=== PATIENT | female | born 1940 | race Caucasian/White ===

== ENCOUNTER 2016-11-13 13:30 | Outpatient (CLI) | payer MEDICARE, OTHER ==
--- NOTE | 2016-11-13 16:28 | CT ---
NONCONTRAST CT OF THE LUMBAR SPINE: Indication: Post laminectomy syndrome. Comparison: None. FINDINGS: There are bilateral pedicle screws at L3 through L5 with interconnecting rods. There is some mild l ucency surrounding the pedicle screw on the right at L3 which may reflect changes of loosening. There is an IVC filter seen within the infrarenal vena cava. There is a battery pack with associate d generator leads seen overlying the left gluteal region. There are surgical clips seen within the pelvis. There is grade I anterolisthesis of L3 on L4. No acute fracture or subluxation is evident. There is moderate spondylosis of the lumbar spine. IMPRESSION: 1. Moderate spondylosis of the lumbar spine with posterior lumbar interspinal instrumentation germán ing L3 through L5. There is some lucency surrounding the pedicle screw on the right at L3, possibly related to loosening. 2. Grade I anterolisthesis of L3 on L4 with vacuum disc phenomenon likely related to some instabili ty at this level. 3. IVC filter. POS: EMETERIO
--- NOTE | 2016-11-13 16:34 | CT ---
NONCONTRAST CT OF THE THORACIC SPINE: Indication: Post laminectomy syndrome. History of chronic pain syndrome. 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 Spinal alignment is preserved. Osseous central canal appears preserved. The average diameter of the thoracic spinal canal is 16 mm. No osseous neural foraminal narrowing is demonstrated. Visualized aspects of the mediastinum a ppear within normal limits. Visualized lungs are clear. 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 POS: EMETERIO
== END 2016-11-13 13:31 | disposition home or self-care (01) ==
LOC: MADRAD 13:30
DX: M96.1 Postlaminectomy syndrome, not elsewhere classified (principal); G89.4 Chronic pain syndrome
CPT/HCPCS: 72128; 72131

== ENCOUNTER 2019-12-11 16:46 | Emergency (ER) | payer MEDICARE, OTHER | END 2019-12-11 17:22 | disposition home or self-care (01) | LOC: MADERS 16:46 | DX: R19.7 Diarrhea, unspecified (principal); I10 Essential (primary) hypertension; G62.9 Polyneuropathy, unspecified; F32.9 Major depressive disorder, single episode, unspecified | CPT/HCPCS: 99281 ==

== ENCOUNTER 2020-01-02 22:36 | Emergency (ER) | payer MEDICARE, OTHER ==
[~2020-01-02 22:36] MED LIST: Sterile Water Irrigation 1,000 ML BOT ONE
== END 2020-01-02 23:13 | disposition home or self-care (01) ==
LOC: MADERS 22:36
DX: T83.091A Other mechanical complication of indwelling urethral catheter, initial encounter (principal); R31.9 Hematuria, unspecified; I10 Essential (primary) hypertension; F32.9 Major depressive disorder, single episode, unspecified; G62.9 Polyneuropathy, unspecified
CPT/HCPCS: 99283; A4217

== ENCOUNTER 2024-06-22 11:11 | Outpatient (CLI) | payer MEDICARE | END 2024-06-22 11:12 | disposition home or self-care (01) | LOC: MADRAD 11:11 | PROVIDERS: ATTEND Internal Medicine Cardiovascular Disease | DX: I48.0 Paroxysmal atrial fibrillation (principal) | CPT/HCPCS: 71046 ==

== ENCOUNTER 2024-09-16 16:54 | Emergency (ER) | payer MEDICARE ==
[~2024-09-16 16:54] MED LIST changes: +Iopamidol 370 76% 100 ML VIAL ONE; -Sterile Water Irrigation 1,000 ML BOT ONE
[2024-09-16] MEDS ORDERED: Acetaminophen 500 MG TAB ONE (18:00)
[2024-09-16] MEDS ORDERED: Sodium Chloride 0.9% 100 ML ONE (18:01)
[2024-09-16] MEDS ORDERED: Cefepime 1 GM VIAL ONE (18:01)
[2024-09-16 18:10] LABS: INR-International Normal Ratio 1.2; Prothrombin Time 15.2 sec (12.0-14.7)
[2024-09-16 18:11] LABS: PTT 30.7 sec (22.9-36.1)
[2024-09-16 18:15] LABS: Hematocrit 36.3 % (36.0-47.0); Hemoglobin 11.8 g/dL (12.0-16.0); Mean Corpuscular HGB CONC 32.6 g/dL (32.0-36.0); Mean Corpuscular Hemoglobin 31.8 pg (27.0-31.0); Mean Corpuscular Volume 97.3 fl (78.0-98.0); Mean Platelet Volume 6.9 fL (7.4-10.4); Platelet Count 285 10x3/uL (130-400); RBC Distribution Width 12.5 % (11.5-14.5); Red Blood Cell (RBC) Count 3.73 mill/uL (4.20-5.40); White Blood Cell (WBC) Count 14.5 10x3/uL (4.8-10.8)
[2024-09-16 18:22] LABS: ALT (SGPT) 9 U/L (8-55); AST (SGOT) 17 U/L (5-34); Albumin 3.1 g/dL (3.4-4.8); Alkaline Phosphatase 62 U/L (40-110); Anion Gap 16 mmol/L (10-20); BUN (Urea Nitrogen) 63 mg/dL (9.8-20.1); Bilirubin, Total 0.6 mg/dL (0.2-1.2); Calc. Creatinine Clearance 0 mL/min (70-130); Calcium 9.5 mg/dL (7.8-10.44); Carbon Dioxide 27 mmol/L (23-31); Chloride 96 mmol/L (98-107); Estimated GFR 19; Globulin 3.3 g/dL (2.4-3.5); Glucose 124 mg/dL (83-110); Lipase 16 U/L (8-78); Potassium 5.2 mmol/L (3.5-5.1); Protein, Total 6.4 g/dL (5.8-8.1); Sodium 134 mmol/L (136-145); Troponin I Less than 0.010 ng/mL (< 0.028)
[2024-09-16 18:28] LABS: Band 4 % (5-11); Lymphocytes 2 % (21-51); MDiff Complete? YES; Manual Diff?? YES; Monocytes 2 % (0-10); Neutrophil 87 % (42-75); Platelet Adequacy Comment Appears Adequate; Reactive Lymphocytes 5 % (0-10)
[2024-09-16 19:42] LABS: Bacteria/HPF 2+ HPF (None Seen); Bilirubin Small (Negative); Blood, Urine Small (Negative); CAUTI Indications for Culture Dysuria,urgency,freq; Clarity Cloudy (Clear); Glucose, Urine (Dipstick) Negative (Negative); Ketone, Urine Trace mg/dL (Negative); Leukocyte Moderate (Negative); Nitrite Negative (Negative); Protein, Urine (Dipstick) 30 mg/dL (Neg-Trace); WBC/HPF Greater than 50 HPF (0-3); pH, Urine 5.5 (5.0-9.0)
[2024-09-16 19:43] LABS: Urine Culture Reflex Yes Yes
== END 2024-09-16 20:34 | disposition short-term general hospital (02) ==
LOC: MADERS 16:54
DX: N17.9 Acute kidney failure, unspecified (principal); N39.0 Urinary tract infection, site not specified; R65.10 Systemic inflammatory response syndrome (SIRS) of non-infectious origin without acute organ dysfunction; I10 Essential (primary) hypertension; I48.91 Unspecified atrial fibrillation; Z79.899 Other long term (current) drug therapy
CPT/HCPCS: 51702; 74177; 80053; 81001; 83605; 83690; 83880; 84484; 85025; 85610; 85730; 87040; 87077; 87086; 87149 ×2; 87186; 93005; 96374; 99285; J0692; Q9967; 36415

== ENCOUNTER 2025-08-31 15:22 | Outpatient (CLI) | payer MEDICARE ==
[2025-08-31 16:03] LABS: #Basophils 0.1 thou/uL (0.0-0.2); #Eosinophils 0.1 thou/uL (0.0-0.7); #Lymphocytes 3.2 thou/uL (1.20-3.40); #Monocytes 0.7 thou/uL (0.11-0.59); #Neutrophils 4.5 thou/uL (1.40-6.50); %Basophils 1.5 % (0.0-1.0); %Eosinophils 1.2 % (0.0-10.0); %Lymphocytes 37.4 % (21.0-51.0); %Monocytes 8.2 % (0.0-10.0); %Neutrophils 51.8 % (42.0-75.0); Hematocrit 38.8 % (36.0-47.0); Hemoglobin 12.9 g/dL (12.0-16.0); Mean Corpuscular Hemoglobin 31.8 pg (27.0-31.0); Mean Corpuscular Volume 95.5 fl (78.0-98.0); Platelet Count 308 10x3/uL (130-400); Red Blood Cell (RBC) Count 4.06 mill/uL (4.20-5.40); White Blood Cell (WBC) Count 8.7 10x3/uL (4.8-10.8)
== END 2025-08-31 15:23 | disposition home or self-care (01) ==
LOC: MADLAB 15:22
PROVIDERS: ATTEND Internal Medicine Cardiovascular Disease
DX: I48.0 Paroxysmal atrial fibrillation (principal)
CPT/HCPCS: 36415; 85025